=== PATIENT | female | born 1985 | race Caucasian/White ===

== ENCOUNTER 2019-06-18 23:42 | Emergency (ER) | payer BC ==
[~2019-06-18] VITALS: Ht 160 cm; Wt 66.2 kg
[2019-06-18 23:53] VITALS: Ht 160 cm; Wt 66.2 kg
[2019-06-19 00:27] LABS: BASOPHIL % 0.4 % (0-2); PLATELET COUNT 284 x10^3mcL (130-400); RED CELL DISTRIBUTION WIDTH 13.6 % (11.5-14.5)
[2019-06-19 02:40] VITALS: BP 100/55
== END 2019-06-19 02:40 | disposition home or self-care (01) ==
LOC: ED 23:42
DX: O20.0 Threatened abortion (principal)
CPT/HCPCS: 36415

== ENCOUNTER 2019-06-20 23:31 | Emergency (ER) | payer BC ==
[~2019-06-20] VITALS: Ht 160 cm; Wt 67.1 kg
[2019-06-20 23:36] VITALS: Ht 160 cm; Wt 67.1 kg
[2019-06-21 02:46] VITALS: BP 115/49
== END 2019-06-21 02:46 | disposition home or self-care (01) ==
LOC: ED 23:31
DX: O03.9 Complete or unspecified spontaneous abortion without complication (principal)